=== PATIENT | female | born 1975 | race Caucasian/White ===

== ENCOUNTER 2020-10-08 20:20 | Emergency (ER) | payer OTHER ==
[~2020-10-08] VITALS: Ht 170.2 cm; Wt 70.3 kg
[2020-10-08 20:20] VITALS: BP 134/85
--- NOTE | 2020-10-08 20:38 | NUR ---
SEEN ABD EXAMINED BY DR HAMMER
--- NOTE | 2020-10-08 20:56 | NUR ---
Patient discharged to home in stable condition. Written and verbal after care instructions given. Patient verbalizes understanding of instruction. Pt ambulatory with a steady gait
== END 2020-10-08 20:57 | disposition home or self-care (01) ==
LOC: ER 20:27
DX: N64.4 Mastodynia (principal)